=== PATIENT | female | born 1970 | race Caucasian/White ===

== ENCOUNTER 2018-01-09 21:47 | Emergency (ER) | payer OTHER ==
[~2018-01-09] VITALS: Ht 170.2 cm; Wt 74.8 kg
[2018-01-09] MEDS ORDERED: ASPIRIN 325 MG TAB PO ONE (22:15)
--- NOTE | 2018-01-09 22:47 | Diagnostic Imaging Report ---
Exam: PA and lateral view of the chest Indication: Chest pain Comparison: None Findings: No consolidations, pleural effusions or pneumothorax. Left upper lung granuloma. The heart is within normal size limits. No acute bone findings. Surgical clips right upper quadrant of the abdomen. Impression: Normal chest x-ray. Signed by: Dr. Stefanie Hodgson M.D. on 01/09/2018 10:43 PM
[2018-01-09] MEDS ORDERED: FAMOTIDINE 20 MG/2 ML VIAL IV STA (22:55)
[2018-01-09] MEDS ORDERED: LIDOCAINE VISC 2% SOLN 15 ML UDC PO ONE (23:00)
[2018-01-09] MEDS ORDERED: MAGNESIUM/ALUMINUM/SIMETHICONE 30 ML UDC PO ONE (23:00)
[2018-01-09] MEDS ORDERED: ONDANSETRON HCL INJ 2 MG/ML VIAL IV STA (23:17)
== END 2018-01-10 00:57 | disposition home or self-care (01) ==
LOC: FSED 21:47
DX: R07.2 Precordial pain (principal); Z82.49 Family history of ischemic heart disease and other diseases of the circulatory system
CPT/HCPCS: 71046; 80053; 81003; 82553; 84484; 85025; 93005 ×2; 99283; J2405

== ENCOUNTER 2018-01-28 15:33 | Emergency (ER) | payer OTHER ==
[~2018-01-28] VITALS: Ht 165.1 cm; Wt 92.5 kg
--- OUTSIDE RECORDS SUMMARY | 2018-01-28 15:35 | XMS REPORT | Encounter Summary ---
Author Organization Unknown Address [address] [place] [address] Phone [phone] Reason for Visit Medical Complaint Instructions 1. Influenza-like illness rapid flu (A+B) Tamiflu 75 mg capsule 2. Pain in throat sore throat: care instructions rapid strep group A, throat Discussion Note: None recorded. Plan of Care Patient Instructions otc tylenol and ibuprofen for fever and body aches. increase fluids. follow up pcp Reminders Provider Appointments None recorded. Lab Rapid Flu (A+B) 01/23/2017 [facility] Rapid Strep Group a, Throat 01/23/2017 [facility] Referral None recorded. Procedures None recorded. Surgeries None recorded. Imaging None recorded. Medications Name Start Date doxepin 5 % topical cream duloxetine 20 mg capsule,delayed release fluticasone 50 mcg/actuation nasal spray,suspension SPRAY ONCE IN EACH NOSTRIL BID PRN indomethacin ER 75 mg capsule,extended release Lidocaine Viscous 2 % mucosal solution TK 3 TEA PO Q 3 H PRN mometasone 50 mcg/actuation nasal spray ProAir HFA 90 mcg/actuation aerosol inhaler INHALE 2 PUFFS PO Q 4-6 H PRN Tamiflu 75 mg capsule Take 1 capsule twice a day by oral route for 5 days. Vanatol LQ 50 mg-325 mg-40 mg/15 mL oral solution Medications Administered None recorded. Vitals Height Weight BMI Blood Pressure 5 ft 5 in 200 lbs 33.3 kg/m2 138/86 mm[Hg] Lab Results Date Name Specimen Result Interpretation Description Value Range Status Address Rapid Strep Group a, Throat Result negative [facility]: [address] [place] [address] Swab Location Left and Right tonsillar pillars [facility]: [address] [place] [address] Rapid Flu (A+B) Influenza a negative [facility]: [address] [place] [address] Influenza B negative [facility]: [address] [place] [address] Allergies Code Code System Name Reaction Severity Status Onset 032648 RxNorm Bactrim Hives Active 259174 RxNorm Cipro Vomiting Active 2670 RxNorm Codeine Vomiting Active 762012 RxNorm Macrobid Vomiting Active 7052 RxNorm Morphine Abdominal Pain Active Problems None recorded. Procedures Date Name Performed by Sinus Surgery Information not available Gastric Bypass Information not available Knee Arthroscopy/surgery Information not available Hysterectomy Information not available Vaccine List None recorded. Social History Smoking Status Never Smoker Past Encounters 01/23/2017 Influenza-like Illness; Pain in Throat Andrés Mcgrath [facility]: [address] [facility], [place] [address], Ph. History of Present Illness Iqbns-Ieevwttccn-Awuhyhm Reported By: Patient HPI: Location: head/sinuses, throat. Quality: productive cough, sore throat, nasal/sinus congestion. Duration: 1days. Severity: moderate. Onset/Timing: gradual. Context: no sick contacts, no foreign travel, non-smoker. Modifying factors: OTC medication. Associated Symptoms: no sputum production, no shortness of breath, no wheezing, no change in number of pillows needed to sleep at night, no sweats, no significant weight gain, no significant weight loss, no morning cough, no vomiting, no diarrhea, no rash, no nausea, no fever, no headache, sore throat, fever, muscle aches Review of Systems:ROS as noted in the HPI Review of Systems Basic Reported By: Patient Physical Exam Adult Basic, Adult Female Complete Reported By: Patient Constitutional: General Appearance: obese. Level of Distress: NAD. Ambulation: ambulating normally Psychiatric: Mental Status: active and alert Eyes: Lids and Conjunctivae: non-injected, no discharge Xbh-Txkr-Oesul-Throat: Ears: no lesions on external ear, no outer ear tenderness, EACs clear, TMs clear. Hearing: no hearing loss. Nose: no lesions on external nose, nasal discharge--rhinorrhea; congestion. Lips, Teeth, and Gums: no mouth or lip ulcers. Oropharynx: moist mucous membranes, no erythema, no exudates, tonsils not enlarged Neck: Neck: trachea midline. Lymph Nodes: no cervical LAD Lungs: Respiratory effort: no dyspnea, no tachypnea, no use of accessory muscles, no intercostal retractions. Auscultation: breath sounds normal Cardiovascular: Heart Auscultation: RRR, no murmurs
--- OUTSIDE RECORDS SUMMARY | 2018-01-28 15:35 | XMS REPORT | Encounter Summary ---
Author Organization Unknown Address [address] [place] [address] Phone [phone] Reason for Visit Medical Complaint Instructions 1. Acute maxillary sinusitis sinusitis: care instructions fluticasone 50 mcg/actuation nasal spray,suspension Levaquin 750 mg tablet 2. Seasonal allergic rhinitis seasonal allergies: care instructions Medrol (Cali) 4 mg tablets in a dose pack 3. Sore throat symptom sore throat: care instructions Lidocaine Viscous 2 % mucosal solution rapid strep group A, throat Discussion Note Pt is in NAD; Verbalizes understanding of all instructions with no questions at this time. Plan of Care Patient Instructions Take fluticasone as needed for congestion. Doucette one spray in each nostril twice a day. Take a warm, steamy shower, blow your nose thereafter, and spray in each nostril. Tilt your head up for about 10 seconds and breath through your mouth. Do not sniff or snort the medication in or else the medication will go to your throat and not be absorbed appropriately. Take over the counter cherry, claritin, zyrtec, benadryl or Xyzal for allergy like symptoms like runny nose, sneezing and watery eyes. Take over the counter claritin, cherry, zyrtec, beandryl or Xyzal for allergy like symptoms like runny nose, sneezing and watery eyes. Take steroid taper as directed and with food to avoid heartburn. Gargle and spit viscous lidocaine as needed for sore throat as directed. Take Antibiotic as directed and with food to avoid GI distress and start probiotics as well to aid with GI health. Take medications as prescribed and follow up with a PCP and/or ENT within 2-3 if symptoms worsen as discussed. Reminders Provider Appointments None recorded. Lab Rapid Strep Group a, Throat 10/01/2016 [facility] Referral None recorded. Procedures None recorded. Surgeries None recorded. Imaging None recorded. Medications Name Start Date Advair HFA 230 mcg-21 mcg/actuation aerosol inhaler INHALE 2 PUFFS PO BID UTD amoxicillin 500 mg capsule diclofenac 3 % topical gel doxepin 5 % topical cream fluocinonide 0.1 % topical cream fluticasone 50 mcg/actuation nasal spray,suspension Doucette 1 spray twice a day by intranasal route as needed for 14 days. Levaquin 750 mg tablet Take 1 tablet every day by oral route as directed for 5 days. lidocaine 5 % topical ointment Lidocaine Viscous 2 % mucosal solution Take 15 mL every 3 hours by oral route as needed. Medrol (Cali) 4 mg tablets in a dose pack Take as directed montelukast 10 mg tablet TK 1 T PO QPM mupirocin 2 % topical ointment Ortho D 3,775 unit-1 mg capsule ProAir HFA 90 mcg/actuation aerosol inhaler INHALE 2 PUFFS PO Q 4-6 H PRN tramadol 37.5 mg-acetaminophen 325 mg tablet Vanatol LQ 50 mg-325 mg-40 mg/15 mL oral solution Medications Administered None recorded. Vitals Height Weight BMI Blood Pressure 5 ft 5 in 190 lbs 31.6 kg/m2 124/82 mm[Hg] Lab Results Date Name Specimen Result Interpretation Description Value Range Status Address Rapid Strep Group a, Throat Result negative [facility]: [address] [place] [address] Swab Location Left and Right tonsillar pillars [facility]: [address] [place] [address] Allergies Code Code System Name Reaction Severity Onset 355598 RxNorm Bactrim Hives 732067 RxNorm Cipro Vomiting 2670 RxNorm Codeine Vomiting 537512 RxNorm Macrobid Vomiting 7052 RxNorm Morphine Abdominal Pain Problems None recorded. Procedures Date Name Performed by Sinus Surgery Information not available Gastric Bypass Information not available Knee Arthroscopy/surgery Information not available Hysterectomy Information not available Vaccine List None recorded. Social History Smoking Status Never Smoker Past Encounters 10/01/2016 Acute Maxillary Sinusitis; Seasonal Allergic Rhinitis; Sore Throat Symptom BERT [facility]: [address] [facility], [place] [address], Ph. History of Present Illness [id number]-[id number]-Aknwaxu Reported By: Patient HPI: Location: head/sinuses, throat. Quality: sore throat, nasal/sinus congestion. Duration: 3days. Severity: moderate. Onset/Timing: gradual. Context: no sick contacts, no foreign travel, allergies, asthma; Chronic and recurrent sinusitis. Modifying factors: OTC medication. Associated Symptoms: no sputum production, no shortness of breath, no wheezing, no change in number of pillows needed to sleep at night, no sweats, no significant weight gain, no significant weight loss, no morning cough, no vomiting, no diarrhea, no rash, no nausea, no fever, no muscle aches, no headache, sore throat; sinus congestion, purulent nasal drainage, and left facial pain Review of Systems:ROS as noted in the HPI Review of Systems Basic Reported By: Patient Physical Exam Adult Basic, Adult Female Complete Reported By: Patient Constitutional: General Appearance: healthy-appearing, well-nourished, well-developed. Level of Distress: NAD. Ambulation: ambulating normally Psychiatric: Mental Status: active and alert. Orientation: to time, to place, to person Knz-Xhoa-Lpoqr-Throat: Ears: no lesions on external ear, no outer ear tenderness, EACs clear, TMs clear. Hearing: no hearing loss. Nose: no lesions on external nose, nares patent, no septal deviation, nasal passages clear, sinus tenderness, nasal discharge, nasal discharge--purulent, post nasal drip. Lips, Teeth, and Gums: no mouth or lip ulcers, no bleeding gums, normal dentition. Oropharynx: moist mucous membranes, no erythema, no exudates, tonsils not enlarged Neck: Lymph Nodes: no cervical LAD, no supraclavicular LAD Lungs: Respiratory effort: no dyspnea, no tachypnea, no use of accessory muscles, no intercostal retractions. Auscultation: breath sounds normal Cardiovascular: Heart Auscultation: RRR, no murmurs Neurologic: Gait and Station: normal gait, normal station
--- OUTSIDE RECORDS SUMMARY | 2018-01-28 15:35 | XMS REPORT | Continuity of Care Document ---
Author Author [facility] Interface Address Unknown Phone Unavailable Problems Problem Status Onset Date Classification Date Reported Comments Source Influenza-like illness 01/23/2017 Diagnosis 01/23/2017 [facility] Pain in throat 01/23/2017 Diagnosis 01/23/2017 [facility] Acute maxillary sinusitis 10/01/2016 Diagnosis 10/01/2016 [facility] Seasonal allergic rhinitis 10/01/2016 Diagnosis 10/01/2016 [facility] Sore throat symptom 10/01/2016 Diagnosis 10/01/2016 [facility] Medications Medication Details Route Status Patient Instructions Ordering Provider Order Date Source Fluticasone propionate 0.23 MG/ACTUAT / salmeterol 0.021 MG/ACTUAT Metered Dose Inhaler Advair HFA 230 mcg-21 mcg/actuation aerosol inhaler INHALE 2 PUFFS PO BID UTD Active [facility] Amoxicillin 500 MG Oral Capsule amoxicillin 500 mg capsule Active [facility] Diclofenac Sodium 0.03 MG/MG Topical Gel diclofenac 3 % topical gel Active [facility] Doxepin Hydrochloride 50 MG/ML Topical Cream doxepin 5 % topical cream Active [facility] Fluocinonide 1 MG/ML Topical Cream fluocinonide 0.1 % topical cream Active [facility] Fluticasone propionate 0.05 MG/ACTUAT Metered Dose Nasal [place] fluticasone 50 mcg/actuation nasal spray,suspension SPRAY ONCE IN EACH NOSTRIL BID PRN Active [facility] Levofloxacin 750 MG Oral Tablet [Levaquin] Levaquin 750 mg tablet Take 1 tablet every day by oral route as directed for 5 days. Active [facility] Lidocaine 0.05 MG/MG Topical Ointment lidocaine 5 % topical ointment Active [facility] Lidocaine Hydrochloride 20 MG/ML Mucous Membrane Topical Solution Lidocaine Viscous 2 % mucosal solution TK 3 TEA PO Q 3 H PRN Active [facility] Medrol (Cali) 4 mg tablets in a dose pack Medrol (Cali) 4 mg tablets in a dose pack Take as directed Active [facility] montelukast 10 MG Oral Tablet montelukast 10 mg tablet TK 1 T PO QPM Active [facility] Mupirocin 0.02 MG/MG Topical Ointment mupirocin 2 % topical ointment Active [facility] Cholecalciferol 3775 UNT / Folic Acid 1 MG Oral Capsule Ortho D 3,775 unit-1 mg capsule Active [facility] 200 ACTUAT Albuterol 0.09 MG/ACTUAT Metered Dose Inhaler [ProAir] ProAir HFA 90 mcg/actuation aerosol inhaler INHALE 2 PUFFS PO Q 4-6 H PRN Active [facility] Acetaminophen 325 MG / tramadol hydrochloride 37.5 MG Oral Tablet tramadol 37.5 mg-acetaminophen 325 mg tablet Active [facility] Acetaminophen 21.7 MG/ML / butalbital 3.33 MG/ML / Caffeine 2.67 MG/ML Oral Solution [Vanatol] Vanatol LQ 50 mg-325 mg-40 mg/15 mL oral solution Active [facility] duloxetine 20 MG Delayed Release Oral Capsule duloxetine 20 mg capsule,delayed release Active [facility] Indomethacin 75 MG Extended Release Oral Capsule indomethacin ER 75 mg capsule,extended release Active [facility] mometasone furoate 0.05 MG/ACTUAT Metered Dose Nasal [place] mometasone 50 mcg/actuation nasal spray Active [facility] Oseltamivir 75 MG Oral Capsule [Tamiflu] Tamiflu 75 mg capsule Take 1 capsule twice a day by oral route for 5 days. Active [facility] Allergies, Adverse Reactions, Alerts Substance Category Reaction Severity Reaction type Status Date Reported Comments Source Morphine Abdominal pain Allergy to substance 10/01/2016 [facility] Cipro Vomiting Allergy to substance 10/01/2016 [facility] Bactrim Hives Allergy to substance 10/01/2016 [facility] Macrobid Vomiting Allergy to substance 10/01/2016 [facility] Codeine Vomiting Allergy to substance 10/01/2016 [facility] Immunizations Immunization Date Given Site Status Last Updated Comments Source Results Order Name Results Value Reference Range Date Interpretation Comments Source RESULT negative 01/23/2017 [facility] SWAB LOCATION Left and Right tonsillar pillars 01/23/2017 [facility] Influenza A negative 01/23/2017 [facility] Influenza B negative 01/23/2017 [facility] RESULT negative 10/01/2016 [facility] SWAB LOCATION Left and Right tonsillar pillars 10/01/2016 [facility] Vital Signs Vital Sign Value Date Comments Source Diastolic (mm Hg) 86 01/23/2017 [facility] Height 65 01/23/2017 [facility] Systolic (mm Hg) 138 01/23/2017 [facility] Weight 200 01/23/2017 [facility] Diastolic (mm Hg) 82 10/01/2016 [facility] Height 65 10/01/2016 [facility] Systolic (mm Hg) 124 10/01/2016 [facility] Weight 190 10/01/2016 [facility] Encounters Location Location Details Encounter Type Encounter Number Reason For Visit Attending Provider ADM Date DC Date Status Source [place] - [facility] - [id number] Butcher, [employer]-C: [address] [place] [address], Ph. [id number] Annmarie Butcher 10/01/2016 [facility] [place] - [facility] [id number] Andrés Mcgrath, [employer]-C: [address] [place] [address], Ph. [id number] Andrés Mcgrath 01/23/2017 [facility] Procedures Procedure Code Date Perfomer Comments Source Sinus Surgery [facility] Gastric Bypass [facility] Knee Arthroscopy/surgery [facility] Hysterectomy [facility] Knee Arthroscopy/surgery [address] [facility]
--- OUTSIDE RECORDS SUMMARY | 2018-01-28 15:36 | XMS REPORT ---
Author Author [facility] Address Unknown Phone Unavailable Care Team Providers Care Rn Radiation Name Role Phone Hugo CHAU Unavailable Unavailable Problems This patient has no known problems. Allergies, Adverse Reactions, Alerts This patient has no known allergies or adverse reactions. Medications This patient has no known medications. Results Test Description Test Time Test Comments Text Results Atomic Results Result Comments CXR 2 [facility] 2018-01-09 22:30:00 [place] [address] Patient Name: JOSÉ COLON MR #: [id number] : 1970 Age/Sex: 47/F Req #: [id number] Adm Physician: Ordered by: MAHESH CHAU MD Report #: [id number] Location: [facility] Room/Bed: Procedure: [id number] HOPD/CXR 2 [facility] Exam Date: 01/09/18 Exam Time: 2225 REPORT STATUS: Signed Exam: PA and lateral view of the chest Indication: Chest pain Comparison: None Findings: No consolidations, pleural effusions or pneumothorax. Left upper lung granuloma. The heart is within normal size limits. No acute bone findings. Surgical clips right upper quadrant of the abdomen. Impression: Normal chest x-ray. Signed by: Dr. Lynn Brandt M.D. on 01/09/2018 10:43 PM Dictated By: LYNN BRANDT MD 42 Transcribed By: KATERINE on 01/09/182242 COPY TO: MAHESH CHAU MD
[2018-01-28] MEDS ORDERED: IBUPROFEN 600 MG TAB PO STA (16:09)
[2018-01-28] MEDS ORDERED: ACETAMINOPHEN 325 MG TAB PO ONE ×2 (16:15→17:00)
[2018-01-28] MEDS ORDERED: ONDANSETRON HCL 4 MG ORAL DISINTEGRATING TAB PO ONE (16:15)
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
== END 2018-01-28 17:16 | disposition home or self-care (01) ==
LOC: FSED 15:33
DX: M79.632 Pain in left forearm (principal); M62.838 Other muscle spasm; V43.52XA Car driver injured in collision with other type car in traffic accident, initial encounter; Y92.488 Other paved roadways as the place of occurrence of the external cause
CPT/HCPCS: 99284

== ENCOUNTER 2019-01-05 19:40 | Emergency (ER) | payer OTHER ==
[~2019-01-05] VITALS: Ht 165.1 cm; Wt 83.9 kg
[2019-01-05] MEDS ORDERED: KETOROLAC TROMETHAMINE 60 MG/2 ML VIAL IM ONE (19:45)
--- NOTE | 2019-01-05 20:42 | Diagnostic Imaging Report ---
X-ray left foot 3 views HISTORY: Pain. COMPARISON: None available. FINDINGS: Bones: No acute displaced fracture. Osseous alignment is within normal limits. Joints: The joint spaces are well-maintained. Soft tissues: Mild soft tissue swelling of the forefoot. IMPRESSION: No acute radiographic osseous abnormality. Mild soft tissue swelling of the forefoot. Signed by: Marc Aviles DO on 01/05/2019 8:39 PM
== END 2019-01-05 21:11 | disposition home or self-care (01) ==
LOC: FSED 19:40
DX: S90.32XA Contusion of left foot, initial encounter (principal); S90.812A Abrasion, left foot, initial encounter; S90.122A Contusion of left lesser toe(s) without damage to nail, initial encounter; S90.415A Abrasion, left lesser toe(s), initial encounter; W22.8XXA Striking against or struck by other objects, initial encounter; Y92.832 Beach as the place of occurrence of the external cause
CPT/HCPCS: 73630; 99283; J1885

== ENCOUNTER 2019-07-10 14:03 | Emergency (ER) | payer OTHER ==
[~2019-07-10] VITALS: Ht 165.1 cm; Wt 86.2 kg
[2019-07-10] MEDS ORDERED: KETOROLAC TROMETHAMINE 30 MG/ML VIAL IV STA ×2 (15:00→16:15)
[2019-07-10] MEDS ORDERED: ONDANSETRON HCL INJ 2MG/ML 2ML 2 MG/ML VIAL IV STA (15:00)
--- NOTE | 2019-07-10 16:09 | Diagnostic Imaging Report ---
EXAM: CT Abdomen and Pelvis WITHOUT intravenous contrast INDICATION: Right flank pain COMPARISON: None. TECHNIQUE: Abdomen and pelvis were scanned utilizing a multidetector helical scanner from the lung base to the pubic symphysis without administration of IV contrast. Coronal and sagittal reformations were obtained. IV CONTRAST: None ORAL CONTRAST: None COMPLICATIONS: None RADIATION DOSE: Total DLP: 1158 mGy*cm Dose modulation, iterative reconstruction, and/or weight based adjustment of the mA/kV was utilized to reduce the radiation dose to as low as reasonably achievable. FINDINGS: LOWER THORAX: Bilateral saline breast implants. HEPATOBILIARY: 2 cm left hepatic cyst. Subcentimeter right hepatic hypodensity is too small to adequately characterize but likely also represents a cyst. No other focal liver lesion. No biliary ductal dilation. Status post cholecystectomy. SPLEEN: No splenomegaly. PANCREAS: No focal masses or ductal dilatation. ADRENALS: No adrenal nodules. KIDNEYS/URETERS: No hydronephrosis, stones, or solid mass lesions. PELVIC ORGANS/BLADDER: Unremarkable. PERITONEUM / RETROPERITONEUM: No free air or fluid. LYMPH NODES: No lymphadenopathy. VESSELS: Unremarkable. GI TRACT: Status post partial gastrectomy. No abnormal bowel thickening. No bowel obstruction. Normal appendix. BONES AND SOFT TISSUES: No acute osseous injury. No suspicious lytic or blastic lesions. IMPRESSION: No acute findings in the abdomen or pelvis. Specifically, no renal calculi or hydronephrosis. Signed by: Xavi Russ MD on 07/10/2019 4:05 PM
[2019-07-10 16:20] VITALS: BP 137/82
[2019-07-10] MEDS ORDERED: TYLENOL # 31 EA PO (16:23)
[2019-07-10] MEDS ORDERED: CIPRO500 MG PO (16:23)
[2019-07-10] MEDS ORDERED: KETOROLAC TROME10 MG PO (16:27)
[2019-07-10] MEDS ORDERED: CEFDINIR300 MG PO (16:28)
== END 2019-07-10 16:32 | disposition home or self-care (01) ==
LOC: FSED 14:03
DX: R11.0 Nausea (principal); M54.5 Low back pain; N23 Unspecified renal colic; I48.91 Unspecified atrial fibrillation
CPT/HCPCS: 74176; 80053; 81003; 85025; 99284; J1885; J2405

== ENCOUNTER 2020-08-23 08:19 | Emergency (ER) | payer OTHER ==
[~2020-08-23] VITALS: Ht 165.1 cm; Wt 86.2 kg
[~2020-08-23 08:19] MED LIST: CEFDINIR300 MG PO; CIPRO500 MG PO; KETOROLAC TROME10 MG PO; TYLENOL # 31 EA PO
[2020-08-23] MEDS ORDERED: CYCLOPENTOLATE HCL 1% OPTH SOLN 2ML BTL OP ONE (09:00)
[2020-08-23] MEDS ORDERED: CYCLOPENTOLATE HCL 1% OPTH SOLN 2ML BTL ONE (09:08)
== END 2020-08-23 10:09 | disposition home or self-care (01) ==
LOC: FSED 08:44
DX: H53.2 Diplopia (principal); I10 Essential (primary) hypertension; I48.91 Unspecified atrial fibrillation; F41.9 Anxiety disorder, unspecified
CPT/HCPCS: 70450; 93005; 99283

== ENCOUNTER 2021-11-14 15:27 | Emergency (ER) | payer BC, OTHER ==
[~2021-11-14] VITALS: Ht 165.1 cm; Wt 79.4 kg
[2021-11-14] MEDS ORDERED: ONDANSETRON HCL INJ 2MG/ML 2ML 2 MG/ML VIAL IV STA (16:03)
[2021-11-14] MEDS ORDERED: SODIUM CHLORIDE 0.9% 1000ML 1,000 ML IV STA (16:03)
[2021-11-14] MEDS ORDERED: SODIUM CHLORIDE 0.9% 1000ML 1,000 ML ONE (16:21)
[2021-11-14] MEDS ORDERED: ONDANSETRON HCL INJ 2MG/ML 2ML 2 MG/ML VIAL ONE (16:21)
[2021-11-14] MEDS ORDERED: IOPAMIDOL 370 MG/ML 100 ML INFUS..BTL INJ ONE (16:39)
[2021-11-14] MEDS ORDERED: SODIUM CHLORIDE 0.9% 0 ML ONE ×2 (16:42→17:19)
[2021-11-14] MEDS ORDERED: KETOROLAC TROMETHAMINE 30 MG/ML VIAL IV STA (16:43)
[2021-11-14] MEDS ORDERED: ONDANSETRON ODT4 MG PO (17:34)
== END 2021-11-14 17:51 | disposition home or self-care (01) ==
LOC: FSED 16:03
DX: R10.31 Right lower quadrant pain (principal); R11.0 Nausea; I48.91 Unspecified atrial fibrillation; F41.9 Anxiety disorder, unspecified; Z98.84 Bariatric surgery status
CPT/HCPCS: 74177; 80048; 81003; 85025; 99284; J2405; J7030; Q9967; J7050